=== PATIENT | female | born 1975 | race Caucasian/White ===

== ENCOUNTER 2016-08-13 21:50 | Emergency (ER) | payer MEDICAID ==
[2016-08-13] MEDS ORDERED: Sodium Chloride 0.9% 10 ML Syringe FLUSH PRN (22:08)
[2016-08-13] MEDS ORDERED: Sodium Chloride 0.9% 1,000 ML IV SCH (22:15)
--- NOTE | 2016-08-13 22:16 | EDM.PDOC ---
ED HPI GENERAL MEDICAL PROBLEM - General Chief Complaint: Behavioral/Psych Stated Complaint: [facility] Time Seen by Provider: 08/13/16 22:04 Source of Information: Reports: Patient, EMS, RN Notes Reviewed - History of Present Illness INITIAL COMMENTS - FREE TEXT/NARRATIVE: 40 year old male has been brought in by [facility] for eval of hand trauma, mental health concerns. is not yet here. It is expected that he will have further information. EMS was called due to disruptive agitated behavior. She had put her hand through the window of a door with resultant laceration injuries. When EMS arrived she was agitated, "dlusional", talking about God, lying or crouching in the trunk of a car. At this time I do not know when symptoms started. did tell EMS that she does have a history of mental health problems. She apparently at this time and for a while has not been taking previously prescribed medications. She denies drugs or alcohol. She was given Haldol 5 mg IV in route. With that she has calm down. Now on arrival [place] she is mildly sedated. She does not volunteer a lot of information but she is answering simple questions appropriately. She is oriented to person place and time at this time. Mild hand discomfort, no other complaints at this time. She believes her last tetanus immunization was about 7 years ago. - Related Data Allergies Allergy/AdvReac Type Severity Reaction Status Date / Time No Known Allergies Allergy Verified 11/02/15 12:27 Home Meds: Home Meds Penicillin V Potassium 500 mg PO Q6HR #40 tab 09/25/14 [Rx] Hydrocodone/Acetaminophen [Cotuit 5-325 Tablet] 1 each PO Q6HR PRN #20 tablet [Rx] Hydrocodone/Acetaminophen [Hydrocodon-Acetaminophen 5-325] 1 - 2 each PO Q6HR PRN #20 tablet 11/02/15 [Rx] Past Medical History - Past Health History Medical/Surgical History: Denies Medical/Surgical History Cardiovascular History: Reports: Afib, Hypertension Respiratory History: Reports: Asthma Musculoskeletal History: Reports: Other (See Below) Other Musculoskeletal History: Bone Spurs Neurological History: Reports: CVA Other Neuro History: expressive aphasia;receptive aphasia; right side affected Psychiatric History: Reports: Anxiety, Depression Social & Family History - Family History Family Medical History: Noncontributory - Tobacco Use Smoking Status *Q: Current Every Day Smoker Years of Tobacco use: 7 Packs/Tins Daily: 1 Used Tobacco, but Quit: No Second Hand Smoke Exposure: Yes - Recreational Drug Use Recreational Drug Use: No Recreational Drug Type: Reports: Amphetamines (Speed), Marijuana/Hashish ED ROS GENERAL - Review of Systems Review Of Systems: See Below Constitutional: Denies: Fever, Chills HEENT: Denies: Throat Pain Respiratory: Reports: Shortness of Breath (She states she was feeling short of breath, that is gone). Denies: Pleuritic Chest Pain, Cough Cardiovascular: Denies: Chest Pain GI/Abdominal: Denies: Abdominal Pain, Nausea, Vomiting Musculoskeletal: Reports: Other (She does have some hand discomfort area of lacerations palmar aspect left hand) Skin: Reports: Other (She has 2 small lacerations volar aspect of left hand) Neurological: Denies: Headache, Numbness, Tingling, Trouble Speaking, Difficulty Walking Psychiatric: Reports: Agitation (Now better), Anxiety (Now better), Mood Lability. Denies: Hallucinations, Suicidal Ideation ED EXAM, BEHAVIORAL HEALTH - Physical Exam Exam: See Below General Appearance: Alert, Anxious (Mild) Eye Exam: Bilateral Eye: PERRL Ears: Normal External Exam Nose: Normal Inspection Throat/Mouth: Normal Inspection, Other (Oral mucosa is try) Head: Atraumatic. No: Facial Swelling Neck: Supple Respiratory/Chest: No Respiratory Distress, Lungs Clear, Normal Breath Sounds Cardiovascular: Tachycardia GI/Abdominal: Soft, Non-Tender. No: Guarding Back Exam: No: CVA Tenderness (L), CVA Tenderness (R) Extremities: Other (2 small 1 cm lacerations palmar aspect left hand, they do appear moderately deep, gaping, no glass visible or palpable at this time, there is no bony tenderness of the hand, good finger and thumb range of motion) Neurological: No Motor/Sensory Deficits Psychiatric: Alert, Normal Mood, Oriented, Other (Patient is very mildly sedated at this time having received Haldol 5 mg IV just prior to arrival, she does make eye contact at this time is answering simple questions appropriately) . No: Flight of Ideas, Suicidal Thoughts, Auditory Hallucinations, Visual Hallucinations, Pressured Speech, Paranoid Thoughts, Threatening Behavior Skin Exam: Warm, Dry, Normal color, No rash ED LACERATION PROCEDURES - Laceration/Wound Repair Left Hand Lac/wound length in cm: 2 (1 cm plus 1 cm) Appearance: Linear Anesthetic Type: Local Local Anesthesia - Lidocaine (Xylocaine): 1% Plain Skin Prep: Saline Suture Type: Nylon Suture Size: 4-0 # of Sutures: 4 COURSE, BEHAVIORAL HEALTH COMP - Course Vital Signs: Last Vital Signs Temp 96.9 F 08/13/16 21:57 Pulse 101 H 08/13/16 21:57 Resp 16 08/13/16 21:57 BP 108/71 08/13/16 21:57 Pulse Ox 100 08/13/16 21:57 Orders, Labs, Meds: Active Orders 24 hr Category Date Time Status Peripheral IV Care [RC] . DIRECTED Care 08/13/16 22:08 Active DRUG SCREEN, URINE [URCHEM] Stat Lab 08/13/16 22:08 Uncollected UA W/O MICROSCOPIC [URIN] Stat Lab 08/13/16 22:07 Uncollected Sodium Chloride 0.9% [Normal Saline] 1,000 ml Med 08/13/16 22:15 Active IV ONETIME Sodium Chloride 0.9% [Saline Flush] Med 08/13/16 22:08 Active 10 ml FLUSH ASDIRECTED PRN Peripheral IV Insertion Adult [OM.PC] Stat Oth 08/13/16 22:07 Ordered Medication Orders Sodium Chloride (Normal Saline) 1,000 mls @ 999 mls/hr IV ONETIME [facility] Last Admin: 08/13/16 22:14 Dose: 999 mls/hr Sodium Chloride (Saline Flush) 10 ml FLUSH ASDIRECTED PRN PRN Reason: Keep Vein Open Last Admin: 08/13/16 22:15 Dose: 10 ml Laboratory Tests 08/13/16 08/13/16 Range/Units 22:20 22:20 WBC 15.36 H (3.98-10.04) K/mm3 RBC 3.72 L (3.98-5.22) M/mm3 Hgb 12.5 (11.2-15.7) gm/L Hct 36.0 (34.1-44.9) % MCV 96.8 H (79.4-94.8) fl MCH 33.6 H (25.6-32.2) pg MCHC 34.7 (32.2-35.5) g/dl RDW Std Deviation 44.1 (36.4-46.3) fL Plt Count 204 (182-369) K/mm3 MPV 9.6 (9.4-12.3) fl Neut % (Auto) 88.8 H (34.0-71.1) % Lymph % (Auto) 5.6 L (19.3-51.7) % [place] % (Auto) 4.8 (4.7-12.5) % Eos % (Auto) 0.3 L (0.7-5.8) Baso % (Auto) 0.2 (0.1-1.2) % Neut # (Auto) 13.64 H (1.56-6.13) K/mm3 Lymph # (Auto) 0.86 L (1.18-3.74) K/mm3 [place] # (Auto) 0.74 H (0.24-0.36) K/mm3 Eos # (Auto) 0.05 (0.04-0.36) K/mm3 Baso # (Auto) 0.03 (0.01-0.08) K/mm3 Manual Slide Review Abnormal smear Sodium 144 (136-145) mEq/L Potassium 3.4 L (3.5-5.1) mEq/L Chloride 109 H (98-107) mEq/L Carbon Dioxide 24 (21-32) mEq/L Anion Gap 14.4 (5-15) BUN 15 (7-18) mg/dL Creatinine 1.1 H (0.55-1.02) mg/dL Est Cr Clr Drug Dosing 59.95 mL/min Estimated GFR (MDRD) 54 (>60) mL/min BUN/Creatinine Ratio 13.6 L (14-18) Glucose 112 H (74-106) mg/dL Calcium 8.3 L (8.5-10.1) mg/dL Total Bilirubin 0.7 (0.2-1.0) mg/dL AST 26 (15-37) U/L ALT 34 (14-59) U/L Alkaline Phosphatase 69 (46-116) U/L Total Protein 6.8 (6.4-8.2) g/dl Albumin 3.6 (3.4-5.0) g/dl Globulin 3.2 gm/dL Albumin/Globulin Ratio 1.1 (1-2) Ethyl Alcohol 0.00 (0.00) gm% Medications Generic Name Dose Route Start Last Admin Trade Name Freq PRN Reason Stop Dose Admin Sodium Chloride 1,000 mls @ 999 mls/hr 08/13/16 22:15 08/13/16 22:14 Normal Saline IV 999 mls/hr ONETIME NEEMA Administration Sodium Chloride 10 ml 08/13/16 22:08 08/13/16 22:15 Saline Flush FLUSH 10 ml ASDIRECTED PRN Administration Keep Vein Open Discontinued Medications Generic Name Dose Route Start Last Admin Trade Name Freq PRN Reason Stop Dose Admin Sodium Chloride 500 mls @ 999 mls/hr 08/13/16 23:39 08/13/16 23:58 Normal Saline IV 08/14/16 00:09 999 mls/hr .BOLUS ONE Administration Lidocaine HCl 50 ml 08/13/16 23:00 08/13/16 23:09 Xylocaine 1% INJECT 08/13/16 23:01 50 ml ONETIME ONE Administration Re-Assessment/Re-Exam: 11:30. Has been resting comfortably since arrival to ED. Was mildly anxious at first but now more relaxed. Had Haldol 5 mg IV by metal treater en route to ED. labs have come back negative. SHe still has not voided for urine drug screen. Hand lacerations have been repaired. Re-Assessment/Re-Exam Time: 01:16 (Continues to rest comfortably, her is here now to take her home. She is not been psychotic in any way while here in the ED. Continues to answer questions appropriately. She feels safe to go home. She cannot remember the meds to tell me what she had previously been taking. Therefore I have suggested she followup at the clinic later today during regular clinic in pharmacy hours. Her pharmacy than can be contacted to find out what she previously been taking.) Departure - Departure Time of Disposition: 01:11 Disposition: Home, Self-Care 01 Condition: fair Clinical Impression: Anxiety Hand laceration Qualifiers: Encounter type: initial encounter Foreign body presence: without foreign body Laterality: left Qualified Code(s): S61.412A - Laceration without foreign body of left hand, initial encounter - Discharge Information Referrals: PCP,None [Primary Care Provider] - Forms: ED Department Discharge Additional Instructions: Laceration care instr., Stitches out in about 10 days. You were given sedative medication en route to ED by EMS paramedics, do not drive for at least another 12 hrs. See your clinic provider or one of the clinic providers later today for recheck and med refills. Return to ED as needed. - My Orders Last 24 Hours: My Active Orders 08/13/16 22:07 UA W/O MICROSCOPIC [URIN] Stat Peripheral IV Insertion Adult [OM.PC] Stat 08/13/16 22:08 Peripheral IV Care [RC] . DIRECTED DRUG SCREEN, URINE [URCHEM] Stat Sodium Chloride 0.9% [Saline Flush] 10 ml FLUSH ASDIRECTED PRN 08/13/16 22:15 Sodium Chloride 0.9% [Normal Saline] 1,000 ml IV ONETIME - Assessment/Plan Last 24 Hours: My Active Orders 08/13/16 22:07 UA W/O MICROSCOPIC [URIN] Stat Peripheral IV Insertion Adult [OM.PC] Stat 08/13/16 22:08 Peripheral IV Care [RC] . DIRECTED DRUG SCREEN, URINE [URCHEM] Stat Sodium Chloride 0.9% [Saline Flush] 10 ml FLUSH ASDIRECTED PRN 08/13/16 22:15 Sodium Chloride 0.9% [Normal Saline] 1,000 ml IV ONETIME
[2016-08-13] MEDS ORDERED: Lidocaine 1% 50 ML MDV INJECT ONE (23:00)
[2016-08-13] MEDS ORDERED: Sodium Chloride 0.9% 500 ML IV ONE (23:39)
[2016-08-14 01:58] VITALS: BP 111/76
== END 2016-08-14 01:18 | disposition home or self-care (01) ==
LOC: JD.ED 21:50
DX: S61.412A Laceration without foreign body of left hand, initial encounter (principal); F41.9 Anxiety disorder, unspecified; I10 Essential (primary) hypertension; J45.909 Unspecified asthma, uncomplicated; Z86.73 Personal history of transient ischemic attack (TIA), and cerebral infarction without residual deficits; F32.9 Major depressive disorder, single episode, unspecified; F17.210 Nicotine dependence, cigarettes, uncomplicated; X58.XXXA Exposure to other specified factors, initial encounter
CPT/HCPCS: 12001; 36415; 80053; 85025; 96360; 96361; 99285; G0480; J7040; J7050; 99283-25

== ENCOUNTER 2016-09-28 23:09 | Emergency (ER) | payer MEDICAID ==
[2016-09-28 23:28] VITALS: BP 114/73
[2016-09-28] MEDS ORDERED: Ciprofloxacin/Dexamethasone 0.3-0.1% Otic Susp 7.5 ML Bottle EARLF ONE (23:40)
--- NOTE | 2016-09-28 23:44 | EDM.PDOC ---
ED HPI GENERAL MEDICAL PROBLEM - General Chief Complaint: Bite:Animal, Insect Stated Complaint: POSS BUG IN LEFT EAR Time Seen by Provider: 09/28/16 23:23 Source of Information: Reports: Patient History Limitations: Reports: No Limitations - History of Present Illness INITIAL COMMENTS - FREE TEXT/NARRATIVE: The patient is a 40-year-old female with a chief complaint of left ear pain. She states 5 days ago she thought she had a bug in her ear. Her was able to extract the bug with tweezers but this was after she had flushed the ear with hydrogen peroxide. She now has pain in the ear and some discharge. She says the discharge that comes out is white. She also had some blood come out of the ear yesterday. She still able to hear okay. No fever. Pain is moderate. No additional complaint. Left Ear Pain Score (Numeric/FACES): 5 - Related Data Allergies Allergy/AdvReac Type Severity Reaction Status Date / Time No Known Allergies Allergy Verified 11/02/15 12:27 Home Meds: Home Meds Ciprofloxacin HCl/Dexameth [Ciprodex Otic Suspension] 5 drop OT BID #1 bottle [Rx] Citalopram Hydrobromide [Celexa] 40 mg PO DAILY 09/28/16 [History] Past Medical History - Past Health History Medical/Surgical History: Denies Medical/Surgical History Cardiovascular History: Reports: Afib, Hypertension Respiratory History: Reports: Asthma Musculoskeletal History: Reports: Other (See Below) Other Musculoskeletal History: Bone Spurs Neurological History: Reports: CVA Other Neuro History: expressive aphasia;receptive aphasia; right side affected Psychiatric History: Reports: Anxiety, Depression Social & Family History - Family History Family Medical History: Noncontributory - Tobacco Use Smoking Status *Q: Current Every Day Smoker Years of Tobacco use: 7 Packs/Tins Daily: 0.5 Used Tobacco, but Quit: No Second Hand Smoke Exposure: Yes - Caffeine Use Caffeine Use: Reports: Coffee - Recreational Drug Use Recreational Drug Use: No Recreational Drug Type: Reports: Amphetamines (Speed), Marijuana/Hashish ED ROS GENERAL - Review of Systems Review Of Systems: See Below Constitutional: Denies: Fever HEENT: Reports: Ear Pain Respiratory: Reports: No Symptoms ED EXAM, ANIMAL BITE - Physical Exam Exam: See Below Exam Limited By: No Limitations General Appearance: Alert, WD/WN, No Apparent Distress Eye Exam: Bilateral Eye: Normal Inspection Ears: Normal External Exam, Hearing Grossly Normal, Normal TMs, Other (Left canal is mildly inflamed and has some white discharge appearance is consistent with externa infection. Small superficial abrasion near the entrance to the canal.) Course - Vital Signs Last Recorded V/S: Last Vital Signs Temp 36.3 C 09/28/16 23:26 Pulse 52 L 09/28/16 23:26 Resp 20 09/28/16 23:26 BP 114/73 09/28/16 23:26 Pulse Ox 95 09/28/16 23:26 - Orders/Labs/Meds Meds: Medications Discontinued Medications Generic Name Dose Route Start Last Admin Trade Name Freq PRN Reason Stop Dose Admin Ciprofloxacin/Dexamethasone 0.5 ml 09/28/16 23:40 Ciprodex Otic Susp EARLF 09/29/16 00:12 STAT ONE - Re-Assessments/Exams Free Text/Narrative Re-Assessment/Exam: 09/29/16 02:52 Consistent with otitis externa, tympanic membrane appears to be intact, we will treat. Departure - Departure Time of Disposition: 23:40 Disposition: Home, Self-Care 01 Clinical Impression: Otitis externa of left ear Qualifiers: Otitis externa type: other infective Chronicity: acute Qualified Code(s): H60.392 - Other infective otitis externa, left ear - Discharge Information Prescriptions: Ciprofloxacin HCl/Dexameth [Ciprodex Otic Suspension] 5 drop OT BID #1 bottle Instructions: Otitis Externa, [id number] Referrals: PCP,None [Primary Care Provider] - Forms: ED Department Discharge Additional Instructions: 1. Use cipro antibiotic drops in ear until infection clears up 2. Follow up with primary doctor this week for further care.
== END 2016-09-29 00:11 | disposition home or self-care (01) ==
LOC: JD.ED 23:09
DX: H60.392 Other infective otitis externa, left ear (principal); I48.91 Unspecified atrial fibrillation; I10 Essential (primary) hypertension; J45.909 Unspecified asthma, uncomplicated; F17.210 Nicotine dependence, cigarettes, uncomplicated; Z86.73 Personal history of transient ischemic attack (TIA), and cerebral infarction without residual deficits; Z79.899 Other long term (current) drug therapy
CPT/HCPCS: 99283

== ENCOUNTER 2016-12-04 09:23 | Day surgery (SDC) | payer MEDICAID ==
[~2016-12-04 09:23] MED LIST: Lactated Ringers 1,000 ML IV SCH; Lidocaine 1% 4 ML ONE; Lidocaine 1%/Sod Bicarbonate in NS 8.4% 1 ML Syringe PRN; Propofol 200 MG/20 ML SDV ONE; Sodium Chloride 0.9% 10 ML Syringe FLUSH PRN; fentaNYL 100 MCG/2 ML SDV ONE
[2016-12-04] MEDS ORDERED: Albuterol 0.083% 2.5 MG/3 ML Neb Soln NEB ONE (09:37)
[2016-12-04] MEDS ORDERED: Albuterol 0.083% 2.5 MG/3 ML Neb Soln ONE (09:37)
--- NOTE | 2016-12-04 09:38 | PCM.PREANE ---
Preanesthetic Assessment - Anesthesia/Transfusion/Family Hx Anesthesia History: Prior Anesthesia Without Reaction Family History of Anesthesia Reaction: No Transfusion History: No Prior Transfusion(s) Intubation History: Unknown - Review of Systems General: No Symptoms, Fatigue Pulmonary: No Symptoms (Asthma/current smoker: 1/2 pack per day times 7 years, currently trying to quit.), Wheezing (expiratory wheezes noted, nebulizer treatment ordered) Cardiovascular: No Symptoms Gastrointestinal: No Symptoms (GERD), Constipation, Diarrhea, Difficulty Swallowing Neurological: No Symptoms, Tingling (with positioning while asleep) Other: Reports: Neck Pain (DJD cervical spine), Anxiety - Physical Assessment NPO Status Date: 12/04/16 NPO Status Time: 01:00 Pulse: 66 O2 Sat by Pulse Oximetry: 92 Respiratory Rate: 16 Blood Pressure: 117/67 Temperature: 36.6 C Height: 1.68 m Weight: 94 kg ASA Class: 2 Mental Status: Alert & Oriented x3 Airway Class: Mallampati = 2 Dentition: Reports: Normal Dentition, Klemme(s), Missing Tooth/Teeth, Caries Thyro-Mental Finger Breadths: 3 Mouth Opening Finger Breadths: 3 ROM/Head Extension: Full Lungs: Clear to Auscultation, Normal Respiratory Effort, Rhonchi, Wheezing ( expiration) Cardiovascular: Regular Rate, Regular Rhythm, No Murmurs - Lab Values: Labs reviewed and noted and within acceptable range to proceed with scheduled procedure. - Allergies Allergies/Adverse Reactions: Allergies Allergy/AdvReac Type Severity Reaction Status Date / Time codeine Allergy Cannot Verified 12/03/16 16:00 Remember - Anesthesia Plan Pre-Op Medication Ordered: None - Acknowledgements Anesthesia Type Planned: MAC Pt an Appropriate Candidate for the Planned Anesthesia: Yes Alternatives and Risks of Anesthesia Discussed w Pt/Guardian: Yes Pt/Guardian Understands and Agrees with Anesthesia Plan: Yes PreAnesthesia Questionnaire - Past Health History Medical/Surgical History: Denies Medical/Surgical History HEENT History: Reports: Otitis Media, Other (See Below) Other HEENT History: pharyngitis, otitis to L ear, wears glasses Cardiovascular History: Reports: Afib, Hypertension Respiratory History: Reports: Asthma, Other (See Below) Other Respiratory History: URI, asthma Gastrointestinal History: Reports: Chronic Diarrhea, Colon Polyp, Other (See Below) Other Gastrointestinal History: elevated LFTs 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 Musculoskeletal History: Reports: Other (See Below) Other Musculoskeletal History: Bone Spurs Neurological History: Reports: CVA Other Neuro History: expressive aphasia;receptive aphasia; right side affected, cervical degenertive disc disease, occipatal lympohdenopathy Psychiatric History: Reports: Anxiety, Depression, Other (See Below) Other Psychiatric History: anxiety Endocrine/Metabolic History: 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 Hematologic History: 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 Immunologic History: 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 Oncologic (Cancer) History: 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 Dermatologic History: 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 - Past Surgical History Head Surgeries/Procedures: 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 GI Surgical History: Reports: Cholecystectomy, Colonoscopy, EGD Female Surgical History: Reports: Section, Tubal Ligation Endocrine Surgical History: 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 Neurological Surgical History: 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 Oncologic Surgical History: 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 Dermatological Surgical History: 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 - SUBSTANCE USE Smoking Status *Q: Current Every Day Smoker Tobacco Use Within Last Twelve Months: Cigarettes Second Hand Smoke Exposure: Yes Recreational Drug Use History: No Recreational Drug Type: Reports: Amphetamines (Speed), Marijuana/Hashish - HOME MEDS Home Medications: Home Meds QUEtiapine Fumarate [Seroquel] 50 mg PO DAILY 12/03/16 [History] Venlafaxine [Effexor XR] 75 mg PO DAILY 12/03/16 [History] - CURRENT (IN HOUSE) MEDS Current Meds: Current Medications Lactated Ringer's (Ringers, Lactated) 1,000 mls @ 125 mls/hr IV ASDIRECTED NEEMA Stop: 12/04/16 23:00 Lidocaine/Sodium Bicarbonate (Buffered Lidocaine 1% In Ns 8.4%) 0.25 ml .XX ONETIME PRN PRN Reason: Prior to IV Start Stop: 12/04/16 18:00 Sodium Chloride (Saline Flush) 10 ml FLUSH ASDIRECTED PRN PRN Reason: Keep Vein Open Stop: 12/04/16 18:00 Discontinued Medications Fentanyl (Sublimaze) Confirm Administered Dose 100 mcg .ROUTE .STK-MED ONE Stop: 12/04/16 08:04 Lidocaine HCl (Xylocaine-Mpf 1%) Confirm Administered Dose 4 mls @ as directed .ROUTE .STK-MED ONE Stop: 12/04/16 08:03 Propofol (Diprivan 20 Ml) Confirm Administered Dose 200 mg .ROUTE .STK-MED ONE Stop: 12/04/16 08:03
[2016-12-04] MEDS ORDERED: Midazolam 1 MG/ML 2 ML SDV ONE (10:12)
[2016-12-04] MEDS ORDERED: Albuterol 0.083% 2.5 MG/3 ML Neb Soln NEB PRN (10:24)
[2016-12-04] MEDS ORDERED: Propofol 200 MG/20 ML SDV ONE ×2 (10:27→10:41)
[2016-12-04 10:43] VITALS: BP 100/57
--- NOTE | 2016-12-04 10:44 | PCM48HPAN ---
Post Anesthesia Note - EVALUATION WITHIN 48HRS OF ANESTHETIC Vital Signs in Normal Range: Yes Patient Participated in Evaluation: Yes Respiratory Function Stable: Yes Airway Patent: Yes Cardiovascular Function Stable: Yes Hydration Status Stable: Yes Pain Control Satisfactory: Yes Nausea and Vomiting Control Satisfactory: Yes Mental Status Recovered: Yes
--- NOTE | 2016-12-04 10:45 | PCM.OPNOTE ---
- General Post-Op/Procedure Note Date of Surgery/Procedure: 12/04/16 Operative Procedure(s): 1. Esophagogastroduodenoscopy with GE junction biopsy 1. 2. Colonoscopy with rectal polypectomy 1 Findings: 1. Normal upper endoscopy 2. Internal hemorrhoids--uncomplicated, with a diminutive distal rectal polyp Pre Op Diagnosis: 1. GERD symptoms. 2. History of multiple colorectal polyps Post-Op Diagnosis: Internal hemorrhoids which were complicated and a diminutive rectal polyp Anesthesia Technique: MAC, Moderate Sedation Primary Surgeon: Atilio Patel Pathology: 1. GE junction biopsy 2 2. Small rectal polyp EBL in mLs: 0 Complications: None Condition: Good Free Text/Narrative:: After adequate IV sedation and analgesia was obtained with monitoring the patient was placed on her left side. Through a bite-block lubricated upper endoscope was inserted into the esophagus then advanced under direct vision to the stomach. Additional air was given here. The antrum was identified followed by passage of the scope into the second part of the duodenum. The second and first parts were endoscopically normal. The antrum, body, and fundic regions were normal as well. There was no hiatal hernia. The GE junction was sharp and endoscopically normal. 2 random biopsies were taken for histologic review. The body of the esophagus was unremarkable. The vocal cords were briefly visualized on extubation and were grossly normal. Photographs were taken for the patient and for the medical record. Air was removed as I finished this aspect of the procedure which she tolerated well. Perianal inspection and digital rectal examination were performed next and were remarkable for internal hemorrhoids which are uncomplicated. The sphincter tone was normal. A lubricated colonoscope was inserted into the rectum and advanced under direct vision with abdominal pressure to the cecum which was identified. The bowel preparation was fair at best. The cecum, ascending, transverse and descending colons were endoscopically normal with no mass lesions or inflammatory changes seen. The sigmoid colon was unremarkable as well. The proximal rectum was endoscopically normal. In the retroflexed view I could see a small diminutive polyp about 5 mm in diameter which I removed with cold forceps polypectomy. The specimen was retrieved and the area was bleeding slightly. Air was removed as I finished this component of the both procedures. Photographs taken for the patient for the medical record.
== END 2016-12-04 11:07 | disposition home or self-care (01) ==
LOC: JD.SDS 09:23
PROVIDERS: ATTEND Surgery
DX: Z12.11 Encounter for screening for malignant neoplasm of colon (principal); K62.1 Rectal polyp; K64.8 Other hemorrhoids; Z86.010 Personal history of colon polyps; K21.9 Gastro-esophageal reflux disease without esophagitis; F41.9 Anxiety disorder, unspecified; Z88.8 Allergy status to other drugs, medicaments and biological substances; Z79.899 Other long term (current) drug therapy; Z98.51 Tubal ligation status; F17.210 Nicotine dependence, cigarettes, uncomplicated; Z98.890 Other specified postprocedural states; Z68.35 Body mass index [BMI] 35.0-35.9, adult
CPT/HCPCS: 43239; 45380; J2250; J3010; J7120; 00810; J2704

== ENCOUNTER 2017-01-20 10:28 | Emergency (ER) | payer MEDICAID ==
[2017-01-20 10:46] VITALS: BP 139/48
[2017-01-20] MEDS ORDERED: Ibuprofen 800 MG Tab PO ONE (11:36)
[2017-01-20] MEDS ORDERED: Acetaminophen/oxyCODONE 325-5 MG Tab PO ONE (11:36)
--- NOTE | 2017-01-20 11:42 | EDM.PDOC ---
ED HPI GENERAL MEDICAL PROBLEM - General Chief Complaint: ENT Problem Stated Complaint: DENTAL PAIN Time Seen by Provider: 01/20/17 10:42 Source of Information: Reports: Patient History Limitations: Reports: No Limitations - History of Present Illness INITIAL COMMENTS - FREE TEXT/NARRATIVE: Patient is a 41-year-old female presents ED complaining of dental pain. States 01/14/2017 had extraction of 5 teeth to the upper palate. Has been utilizing Tylenol and ibuprofen on a regular alternating basis. States yesterday the medications are not working of the pain has worsened. States she has some faint swelling to her face. Has been rinsing her mouth as instructed starting 2 days ago. Has an appointment with dentist at 6:00 this evening for further evaluation. She's been taking 400 mg ibuprofen and 500 mg of Tylenol every 4 hours up until yesterday. Now she has to take it every 2-1/2 hours. Teeth extracted were 2 through 5 and #11. Denies any drainage from the site. She is taking amoxicillin 500 mg 3 times a day as prescribed. Denies any fever, chills , increased swelling, neck discomfort, or any additional complete. Treatments DELIVERY DIRECTOR: Reports: Acetaminophen, NSAIDS Bilateral Face Pain Score (Numeric/FACES): 8 - Related Data Allergies Allergy/AdvReac Type Severity Reaction Status Date / Time codeine Allergy Cannot Verified 01/20/17 10:41 Remember Home Meds: Home Meds QUEtiapine Fumarate [Seroquel] 50 mg PO DAILY 12/03/16 [History] Venlafaxine [Effexor XR] 75 mg PO DAILY 12/03/16 [History] Past Medical History - Past Health History Medical/Surgical History: Denies Medical/Surgical History HEENT History: Reports: Otitis Media, Other (See Below) Other HEENT History: pharyngitis, otitis to L ear, wears glasses Cardiovascular History: Reports: Afib, Hypertension Respiratory History: Reports: Asthma, Other (See Below) Other Respiratory History: URI, asthma Gastrointestinal History: Reports: Chronic Diarrhea, Colon Polyp, Other (See Below) Other Gastrointestinal History: elevated LFTs ELECTRONICS INSPECTOR History: 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 Musculoskeletal History: Reports: Other (See Below) Other Musculoskeletal History: Bone Spurs Neurological History: Reports: CVA Other Neuro History: expressive aphasia;receptive aphasia; right side affected, cervical degenertive disc disease, occipatal lympohdenopathy Psychiatric History: Reports: Anxiety, Depression, Other (See Below) Other Psychiatric History: anxiety Endocrine/Metabolic History: 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 Hematologic History: 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 Immunologic History: 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 Oncologic (Cancer) History: 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 Dermatologic History: 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 - Past Surgical History Head Surgeries/Procedures: 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 GI Surgical History: Reports: Cholecystectomy, Colonoscopy, EGD Female Surgical History: Reports: Section, Tubal Ligation Endocrine Surgical History: 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 Neurological Surgical History: 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 Oncologic Surgical History: 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 Dermatological Surgical History: 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 Social & Family History - Family History Family Medical History: Noncontributory - Tobacco Use Smoking Status *Q: Never Smoker Years of Tobacco use: 7 Packs/Tins Daily: 0.5 Used Tobacco, but Quit: No Second Hand Smoke Exposure: No - Caffeine Use Caffeine Use: Reports: Coffee - Recreational Drug Use Recreational Drug Use: No Recreational Drug Type: Reports: Amphetamines (Speed), Marijuana/Hashish ED ROS ENT - Review of Systems Review Of Systems: ROS reveals no pertinent complaints other than HPI. ED EXAM, ENT - Physical Exam Exam: See Below Exam Limited By: No Limitations General Appearance: Alert, WD/WN, No Apparent Distress Ears: Hearing Grossly Normal Nose: Normal Inspection Mouth/Throat: Normal Inspection, Other (Status post extraction of 2 through 5 and #11 tooth. It appears some mild swelling to the gumline with no drainage present. Patient may have dry sockets.) Neck: Normal Inspection, Supple Respiratory/Chest: No Respiratory Distress Cardiovascular: Normal Peripheral Pulses, Regular Rate, Rhythm Neurological: Alert, Oriented, CN II-XII Intact, Normal Cognition Psychiatric: Normal Affect, Normal Mood Skin: Warm, Dry, Intact Course - Vital Signs Last Recorded V/S: Last Vital Signs Temp 96.9 F 01/20/17 10:41 Pulse 81 01/20/17 10:41 Resp 24 H 01/20/17 10:41 BP 139/48 L 01/20/17 10:41 Pulse Ox 100 01/20/17 10:41 - Orders/Labs/Meds Meds: Medications Discontinued Medications Generic Name Dose Route Start Last Admin Trade Name Freq PRN Reason Stop Dose Admin Ibuprofen 800 mg 01/20/17 11:36 Motrin PO 01/20/17 11:37 ONETIME ONE Oxycodone/Acetaminophen 1 tab 01/20/17 11:36 Percocet 325-5 Mg PO 01/20/17 11:37 ONETIME ONE - Re-Assessments/Exams Free Text/Narrative Re-Assessment/Exam: Will order oxycodone 53 25 one tab by mouth and also ibuprofen 800 mg by mouth. Patient has an appointment with her dentist at 6:00 this evening. No prescriptions will be provided on discharge. I will let the dentist manage her pain control. Discharge instructions as documented. Departure - Departure Time of Disposition: 11:38 Disposition: Home, Self-Care 01 Condition: Good Clinical Impression: History of dental surgery, Pain, dental - Discharge Information Referrals: Constance Epstein [employer] FISHING GUIDE [Primary Care Provider] - Forms: ED Department Discharge, ED Return to Work/School Form Additional Instructions: You were provided one tab of Percocet and 800 mg of ibuprofen while in the ED. Please keep appointment with dentist for this evening at 6:00 for further evaluation and pain management. Continue taking amoxicillin as prescribed. In addition high-dose ibuprofen will treat both inflammation and pain. Low-dose generally only works on pain. Thus suggest taking 800 mg every 8 hours with water and food along with Tylenol 500 mg every 4 hours for pain. Rinse mouth out with warm salt water as directed by dentist. No driving today since receiving a sedative medication. Follow-up with PCP for further pain management at dentist does not want to manage this.
== END 2017-01-20 11:55 | disposition home or self-care (01) ==
LOC: JD.ED 10:28
DX: K08.89 Other specified disorders of teeth and supporting structures (principal); Z88.5 Allergy status to narcotic agent; Z79.899 Other long term (current) drug therapy
CPT/HCPCS: 99282; A9270; 99283

== ENCOUNTER 2018-04-21 15:53 | Emergency (ER) | payer BC, MEDICAID ==
[2018-04-21 16:04] VITALS: BP 147/87
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
[2018-04-21 17:36] LABS: ACETAMINOPHEN 0 ug/mL (10-30)
== END 2018-04-21 19:58 ==
LOC: JD.ED 15:53
DX: F30.9 Manic episode, unspecified (principal); F63.9 Impulse disorder, unspecified; Z88.5 Allergy status to narcotic agent
CPT/HCPCS: 36415; 80053; 80306; 81025; 84443; 85007; 85027; 93005; 99285; G0480; 93010

== ENCOUNTER 2018-06-20 09:58 | Emergency (ER) | payer SELFPAY ==
[2018-06-20] MEDS ORDERED: LORazepam 1 MG Tab PO ONE (10:30)
[2018-06-20] MEDS ORDERED: Haloperidol 5 MG Tab PO ONE (10:30)
[2018-06-20] MEDS ORDERED: diphenhydrAMINE 25 MG Cap PO ONE (10:31)
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
[2018-06-20 12:07] LABS: ACETAMINOPHEN 0 ug/mL (10-30)
[2018-06-20 13:40] VITALS: BP 82/42
== END 2018-06-20 13:36 ==
LOC: JD.ED 09:58
DX: F23 Brief psychotic disorder (principal); F31.9 Bipolar disorder, unspecified; I10 Essential (primary) hypertension; E66.9 Obesity, unspecified; Z88.5 Allergy status to narcotic agent
CPT/HCPCS: 36415; 80053; 80306; 81001; 84443; 85007; 85027; 93005; 99285; A9270; G0480; 93010

== ENCOUNTER 2020-03-08 20:58 | Emergency (ER) | payer MEDICAID ==
[2020-03-08 21:26] VITALS: BP 125/82; PULSE 84
[2020-03-08] MEDS ORDERED: HYDROmorphone 1 MG/ML Syringe IM ONE (21:29)
--- NOTE | 2020-03-08 21:41 | EDM.PDOC ---
ED HPI GENERAL MEDICAL PROBLEM - General Chief Complaint: Neck Problem Stated Complaint: NECK PAIN Time Seen by Provider: 03/08/20 21:12 Source of Information: Reports: Patient, RN Notes Reviewed History Limitations: Reports: No Limitations - History of Present Illness INITIAL COMMENTS - FREE TEXT/NARRATIVE: Patient is a 44-year-old female presenting to the emergency department with complaints of left lateral neck pain. Patient states that she has chronic neck pain for which she sees a pain specialist. She states on the 04 March, she developed a "pinching sensation" in the left side of her neck. She contacted her pain doctor who prescribed her a 5-day course of oral Toradol. She states initially this was helping. She went to physical therapy today and they "work the area ". She states improved for a while but this evening the pain has worsened. She took one of her Toradol 10 mg about 830 this evening with little to no relief. She denies any recent injuries to the neck. States that she is due to have an MRI repeated. Treatments BOOM TENDER: Reports: Other (see below) Other Treatments BOOM TENDER: had toradol pill at 2030 tonight. Posterior Neck Pain Score (Numeric/FACES): 10 - Related Data Allergies Allergy/AdvReac Type Severity Reaction Status Date / Time codeine Allergy Severe Cannot Verified 03/08/20 21:13 Remember Home Meds: Home Meds Albuterol Sulfate [Proair Hfa] 2 puff INH ASDIRECTED 03/08/20 [History] Celecoxib [CeleBREX] 200 mg PO DAILY 03/08/20 [History] Ketorolac [Toradol] 10 mg PO Q6H PRN 03/08/20 [History] Melatonin 3 mg PO BEDTIME 03/08/20 [History] atorvaSTATin [Lipitor] 5 mg PO BEDTIME 03/08/20 [History] levETIRAcetam [Keppra] 750 mg PO DAILY 03/08/20 [History] Past Medical History - Past Health History Medical/Surgical History: Denies Medical/Surgical History HEENT History: Reports: Impaired Vision Other HEENT History: wears glasses Cardiovascular History: Reports: Afib, High Cholesterol, Hypertension Respiratory History: Reports: Asthma Other Respiratory History: URI, asthma Gastrointestinal History: Reports: Colon Polyp Other Gastrointestinal History: elevated LFTs 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 Musculoskeletal History: Reports: Back Pain, Chronic Other Musculoskeletal History: Bone Spurs Neurological History: Reports: CVA Other Neuro History: expressive aphasia;receptive aphasia; right side affected, cervical degenertive disc disease, occipatal lympohdenopathy Psychiatric History: Reports: Addiction, Anxiety, Depression, Psych Hospitalization(s), Suicide Attempt Other Psychiatric History: anxiety Endocrine/Metabolic History: Reports: Obesity/BMI 30+ Hematologic History: 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 Immunologic History: 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 Oncologic (Cancer) History: 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 Dermatologic History: 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 - Past Surgical History Head Surgeries/Procedures: 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 HEENT Surgical History: Reports: Oral Surgery GI Surgical History: Reports: Cholecystectomy, Colonoscopy, EGD Female Surgical History: Reports: Section, Tubal Ligation Endocrine Surgical History: 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 Neurological Surgical History: 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 Oncologic Surgical History: 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 Dermatological Surgical History: 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 Social & Family History - Family History Family Medical History: No Pertinent Family History - Tobacco Use Tobacco Use Status *Q: Never Tobacco User - Caffeine Use Caffeine Use: Reports: Coffee - Recreational Drug Use Recreational Drug Use: No - Living Situation & Occupation Living situation: Reports: , with Spouse, with Family (Daughter) Occupation: Unemployed ED ROS GENERAL - Review of Systems Review Of Systems: See Below Constitutional: Reports: No Symptoms HEENT: Reports: No Symptoms Respiratory: Reports: No Symptoms Cardiovascular: Reports: No Symptoms Endocrine: Reports: No Symptoms GI/Abdominal: Reports: No Symptoms : Reports: No Symptoms Musculoskeletal: Reports: Neck Pain Skin: Reports: No Symptoms Neurological: Reports: No Symptoms Psychiatric: Reports: No Symptoms Hematologic/Lymphatic: Reports: No Symptoms Immunologic: Reports: No Symptoms ED EXAM, UPPER BACK/NECK PAIN - Physical Exam Exam: See Below General Appearance: Alert, WD/WN, No Apparent Distress Neck Exam: Full Range of Motion, Normal Alignment, Normal Inspection, Tender Lateral (Left). No: Spinous Processes Tender, Tender Midline Cardiovascular/Respiratory: Regular Rate, Rhythm, No M/R/G, Normal Peripheral Pulses, No JVD, Normal Breath Sounds, No Respiratory Distress GI/Abdominal: Normal Bowel Sounds, Soft, Non-Tender, No Organomegaly, No Distention, No Abnormal Bruit, No Mass Neurologic: water pollution specialist II-XII nml As Tested, No Motor/Sensory Deficits, Alert, Normal Mood/Affect, Oriented x 3 Psychiatric: Normal Affect, Normal Mood Skin Exam: Normal Color, Warm/Dry Course - Vital Signs Last Recorded V/S: Last Vital Signs Temp 98.1 F 03/08/20 21:21 Pulse 84 03/08/20 21:21 Resp 18 03/08/20 21:21 BP 125/82 03/08/20 21:21 Pulse Ox 97 03/08/20 21:21 - Orders/Labs/Meds Meds: Medications Discontinued Medications Generic Name Dose Route Start Last Admin Trade Name Kalyn PRKike Reason Stop Dose Admin Hydromorphone HCl 1 mg 03/08/20 21:29 03/08/20 21:35 Dilaudid IM 03/08/20 21:30 1 mg ONETIME ONE Administration - Re-Assessments/Exams Free Text/Narrative Re-Assessment/Exam: Patient is a 44-year-old female presenting to the emergency department with complaints of a worsening of her chronic neck pain. She has had problems with the left side of her neck since 04 March. She has been taking Toradol and attending physical therapy. She was having some improvement till this evening when the pain worsened. She has had no new injuries to the area. Last dose of oral Toradol was at 8:30 PM. I have ordered 1 mg of IM Dilaudid which she has taken in the past and tolerated well. Recommend that she contact her pain specialist tomorrow morning. She would like to go home and rest after this. We will discharge her home. Discussed return precautions. Discharge instructions as documented. Departure - Departure Time of Disposition: 22:05 Disposition: Home, Self-Care 01 Condition: Good Clinical Impression: Neck pain - Discharge Information *PRESCRIPTION DRUG MONITORING PROGRAM REVIEWED*: No *COPY OF PRESCRIPTION DRUG MONITORING REPORT IN PATIENT RADHAMES: No Referrals: Chris Arambula PA-C [Primary Care Provider] - Forms: ED Department Discharge Additional Instructions: You were seen in the emergency department today for worsening of your chronic neck pain. While in the ER, you received an injection of Dilaudid for pain. Recommend that you go home and rest. Continue to continue to take your Toradol as prescribed by your pain doctor. Recommend contacting your pain specialist tomorrow morning to discuss your increased pain. Return to ER as needed. Sepsis Event Note (ED) - Evaluation Sepsis Screening Result: No Definite Risk - Focused Exam Vital Signs: Vital Signs Temp Pulse Resp BP Pulse Ox 03/08/20 21:21 98.1 F 84 18 125/82 97
== END 2020-03-08 22:14 | disposition home or self-care (01) ==
LOC: JD.ED 20:58
DX: M54.2 Cervicalgia (principal); I10 Essential (primary) hypertension; E78.00 Pure hypercholesterolemia, unspecified; I48.91 Unspecified atrial fibrillation; J45.909 Unspecified asthma, uncomplicated; E66.9 Obesity, unspecified; Z68.35 Body mass index [BMI] 35.0-35.9, adult; Z88.5 Allergy status to narcotic agent; Z79.899 Other long term (current) drug therapy
CPT/HCPCS: 96372; 99283; J1170

== ENCOUNTER 2020-08-04 10:48 | Emergency (ER) | payer OTHER ==
[2020-08-04 10:56] VITALS: BP 136/86; PULSE 68
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
--- NOTE | 2020-08-04 11:41 | CT ---
CT cervical spine Technique: Multiple axial sections were obtained from above C1 inferiorly to the lower T2 level. Reconstructed coronal and sagittal images were obtained. Comparison: Previous MRI cervical spine exam of 03/13/19, no prior CT cervical spine study Findings: C5-6: Severe disc space narrowing is noted with anterior spurring and slight posterior spurring. Other vertebral body heights and disc spaces are maintained. Scattered degenerative apophyseal change is seen throughout the cervical spine and upper thoracic spine. No bony central or bony neural foraminal stenosis is seen. No fracture is seen. No abnormal subluxation is appreciated. Reconstructed AP view shows mild spurring within the uncovertebral joints at C5-6. Impression: 1. Degenerative change as noted above. 2. No acute fracture or abnormal subluxation is seen. Diagnostic code #2
== END 2020-08-04 12:12 | disposition home or self-care (01) ==
LOC: JD.ED 10:48
DX: S16.1XXA Strain of muscle, fascia and tendon at neck level, initial encounter (principal); I48.91 Unspecified atrial fibrillation; E78.00 Pure hypercholesterolemia, unspecified; I10 Essential (primary) hypertension; J45.909 Unspecified asthma, uncomplicated; E66.9 Obesity, unspecified; Z68.32 Body mass index [BMI] 32.0-32.9, adult; Z88.5 Allergy status to narcotic agent; Z79.899 Other long term (current) drug therapy; Z86.73 Personal history of transient ischemic attack (TIA), and cerebral infarction without residual deficits; V49.40XA Driver injured in collision with unspecified motor vehicles in traffic accident, initial encounter
CPT/HCPCS: 72125; 72125-26; 99283-25; 99284